=== PATIENT | male | born 1995 | race African-American/Black ===

== ENCOUNTER 2023-08-28 16:14 | Emergency (ER) | payer OTHER ==
[2023-08-28] MEDS: HYDROcod/ACETAM 5/325 MG TABLET PO STA (18:22)
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
[2023-08-28 20:04] VITALS: BP 135/72; O2SAT 98
== END 2023-08-28 19:56 | disposition home or self-care (01) ==
LOC: ED 16:14
DX: M62.838 Other muscle spasm (principal); V43.52XA Car driver injured in collision with other type car in traffic accident, initial encounter; Y92.488 Other paved roadways as the place of occurrence of the external cause
CPT/HCPCS: 70450; 72125; 99283; 99284; A9270